=== PATIENT | female | born 1960 | race African-American/Black ===

== ENCOUNTER 2019-10-19 13:54 | Inpatient (IN) | payer OTHER ==
--- NOTE | 2019-10-19 14:38 | RAD ---
XR Chest 1 View Portable HISTORY: Abnormal labs COMPARISON: 03/14/2014 FINDINGS: The heart size is mildly enlarged. The aorta is tortuous. There is mild pulmonary vascular congestion. No lobar consolidation, pneumothoraces or large effusions are seen.
[2019-10-19 15:59] LABS: #Lymphocytes 0.5 thou/uL (1.20-3.40); #Monocytes 0.3 thou/uL (0.11-0.59); #Neutrophils 1.3 thou/uL (1.40-6.50); %Eosinophils 0.7 % (0.0-10.0); %Lymphocytes 23.4 % (21.0-51.0); %Monocytes 12.9 % (0.0-10.0); Hemoglobin 2.7 g/dL (12.0-16.0); Mean Corpuscular HGB CONC 29.1 g/dL (32.0-36.0); Mean Corpuscular Hemoglobin 21.4 pg (27.0-31.0); Mean Corpuscular Volume 73.6 fL (78.0-98.0); Mean Platelet Volume 12.8 fL (7.4-10.4); Platelet Count 24 thou/uL (130-400); RBC Distribution Width 21.9 % (11.5-14.5); Red Blood Cell (RBC) Count 1.24 mill/uL (4.20-5.40)
[2019-10-19 16:14] LABS: ALT (SGPT) 9 U/L (8-55); AST (SGOT) 17 U/L (5-34); Alkaline Phosphatase 71 U/L (40-110); Anion Gap 11 mmol/L (10-20); BUN (Urea Nitrogen) 4 mg/dL (9.8-20.1); Calc. Creatinine Clearance 0 mL/min (70-130); Calcium 7.9 mg/dL (7.8-10.44); Carbon Dioxide 23 mmol/L (22-29); Chloride 104 mmol/L (98-107); Estimated GFR-MDRD Greater than 90; Globulin 2.6 g/dL (2.4-3.5); Glucose 130 mg/dL (70-105); Protein, Total 5.6 g/dL (6.0-8.3); Sodium 135 mmol/L (136-145)
[2019-10-19 16:23] LABS: Potassium 2.9 mmol/L (3.5-5.1)
[2019-10-19 16:27] LABS: Anisocytosis MODERATE=16-30 cells (100X) (0-5/hpf); Elliptocytes SLIGHT = 2-5 cells (100X) (0-1/hpf); Hypochromia SLIGHT = 6-15 cells (100X) (0-5/hpf); MDiff Complete? YES; Microcytosis SLIGHT = 6-15 cells (100X) (0-5/hpf); Ovalocytes SLIGHT = 2-5 cells (100X) (0-1/hpf); Platelet Morphology Comment Appears Decreased; Poikilocytosis SLIGHT = 6-15 cells (100X) (0-5/hpf); Polychromasia SLIGHT = 2-3 cells (100X) (0-2/hpf); Reflex for Review?? YES; Schistocytes SLIGHT = 2-5 cells (100X) (0-1/hpf); Spherocytes SLIGHT = 1-5 cells (100X) (None Seen); Target Cells SLIGHT = 2-5 cells (100X) (0-1/hpf); Tear Drops SLIGHT = 2-5 cells (100X) (0-1/hpf)
[2019-10-19] MEDS ORDERED: Potassium Chloride 20 MEQ TAB ONE (16:49)
[2019-10-19 20:24] VITALS: BMI 25.6
[2019-10-19] MEDS ORDERED: Furosemide 20 MG/2 ML VIAL SLOW IVP SCH (21:00)
[2019-10-19] MEDS: Potassium Chloride 20 MEQ TAB PO SCH (21:43)
[2019-10-20] MEDS: Potassium Chloride 20 MEQ TAB PO SCH ×5 (00:26→20:03)
[2019-10-20 04:31] LABS: #Lymphocytes 0.7 thou/uL (1.20-3.40); #Monocytes 0.3 thou/uL (0.11-0.59); #Neutrophils 1.2 thou/uL (1.40-6.50); %Eosinophils 1.3 % (0.0-10.0); %Lymphocytes 30.5 % (21.0-51.0); %Monocytes 14.8 % (0.0-10.0); %Neutrophils 53.4 % (42.0-75.0); Hemoglobin 4.5 g/dL (12.0-16.0); Mean Corpuscular HGB CONC 30.2 g/dL (32.0-36.0); Mean Corpuscular Hemoglobin 23.5 pg (27.0-31.0); Mean Platelet Volume 13.3 fL (7.4-10.4); Platelet Count 28 thou/uL (130-400); RBC Distribution Width 20.5 % (11.5-14.5); Red Blood Cell (RBC) Count 1.93 mill/uL (4.20-5.40); White Blood Cell (WBC) Count 2.2 thou/uL (4.8-10.8)
[2019-10-20 04:54] LABS: Anion Gap 8 mmol/L (10-20); BUN (Urea Nitrogen) 4 mg/dL (9.8-20.1); Calc. Creatinine Clearance 104 mL/min (70-130); Carbon Dioxide 25 mmol/L (22-29); Chloride 108 mmol/L (98-107); Estimated GFR-MDRD Greater than 90; Glucose 104 mg/dL (70-105); Iron 94 ug/dL (50-170); Iron Binding Capacity, Total 343 mcg/dL (265-497); Potassium 3.3 mmol/L (3.5-5.1); Sodium 138 mmol/L (136-145)
[2019-10-20 05:28] LABS: Ferritin 3.57 ng/mL (10-291)
[2019-10-20] MEDS ORDERED: Acetaminophen 325 MG TAB PO PRN (08:03)
--- NOTE | 2019-10-20 08:28 | HP ---
CHIEF COMPLAINT: Low potassium and possible anemia. HISTORY OF PRESENT ILLNESS: Ms. Lu is a 58-year-old female with past medical history of hypertension, degenerative joint disease, was seen in my office a couple of days ago. The patient came with complaining of weakness and some shortness of breath and whole body aching. The patient was evaluated and found to have possible anemia. Labs were done in the office, which reveal severe hypokalemia with potassium of 2.7, so the patient was told to come to the hospital. The patient came today. The patient had lab work done again showed a potassium of 2.7, but also severe anemia with hemoglobin of 2.9. The patient was also initially hypotensive, so the patient received IV fluid bolus normal saline, then also received KCl 40 mEq and transfusion, and admitted for further evaluation and management. The patient was also found to have pancytopenia. She did not have any chest pain. No nausea or vomiting. No abdominal pain. No blood in stool. She does have shortness of breath on exertion at times. PAST MEDICAL HISTORY: 1. History of hypertension. 2. Degenerative joint disease. 3. History of alcoholic liver disease, possibly cirrhosis. 4. History of hydrothorax. 5. History of H pylori gastric ulcer in 2011. PAST SURGICAL HISTORY: Status post chest tube placement. and s/p EGD. CURRENT MEDICATIONS: The patient is on: 1. Lisinopril 20 mg daily. 2. Lasix 20 mg p.r.n. 3. Tylenol p.r.n. ALLERGIES: NKDA. FAMILY HISTORY: Nothing contributory. SOCIAL HISTORY: The patient lives with family. No history of smoking. Claims she is not drinking alcohol anymore. REVIEW OF SYSTEMS: CARDIOVASCULAR: No chest pain. No shortness of breath. RESPIRATORY: No fever or cough. GASTROINTESTINAL: Rectal exam deferred. Stool for occult blood done in the revealed it was negative. NEUROLOGICAL: No focal deficit. EXTREMITIES: 1+ pitting edema. PHYSICAL EXAMINATION: GENERAL: The patient is alert, awake, oriented x3. VITAL SIGNS: Temperature 98, pulse 80, respiratory rate 20, blood pressure 100/ 60. HEENT: Head is normocephalic, atraumatic. Pupils are equal and reactive. Nasopharynx is pale. NECK: Supple. No JVD. LUNGS: Bilateral air entry present. No rales, no rhonchi. HEART: S1 and S2, regular. No murmur. ABDOMEN: Soft. No distention. No tenderness. No organomegaly. Bowel sounds present. RECTAL: Deferred. CENTRAL NERVOUS SYSTEM: No focal deficits. LABORATORY DATA: CBC shows WBC 2, hemoglobin 2.7, RBC 1.24, hematocrit 9, platelets 24. Metabolic panel; sodium 135, potassium 2.9, chloride 104, CO2 of 23, urea nitrogen 4, creatinine 0.7, glucose 130. Chest x-ray negative. EKG shows normal sinus rhythm, no acute ST-T changes. ASSESSMENT: 1. Severe anemia, symptomatic. 2. Pancytopenia. 3. Severe hypokalemia. 4. Hypertension by history. 5. Degenerative joint disease. 6. History of H pylori gastric ulcer, treated. 7. History of cirrhosis of liver with ascites. 8. History of hydrothorax, treated. PLAN: 1. Vital sings q.4. 2. Activities as tolerated. 3. Allergies, NKDA. 4. Hep-Lock. 5. Transfuse 2 units of packed red blood cells. 6. Continue her home medications. 7. KCl replacement. 8. Ultrasound of the abdomen and pelvis. 9. Hematology consult. 10. GI consult. Job ID: [id number] MTDD
[2019-10-20] MEDS ORDERED: Furosemide 20 MG TAB PO SCH (09:00)
--- NOTE | 2019-10-20 09:14 | ULT ---
ABDOMINAL ULTRASOUND: HISTORY: Liver disease and anemia. FINDINGS: Real-time imaging of the upper abdomen was performed. In the expected location of the gallbladder is an area of echogenic shadowing. This is suspicious for a contracted gallbladder with gallstones in the absence of a cholecystectomy. The common duct is 3 mm. Liver parenchyma is heterogeneous. A 2. 9 cm septated cyst is seen. Liver contour shows slightly nodular contour suggesting cirrhotic change . The spleen measures 11.2 cm. Pancreas is largely obscured. Right and left kidneys are within nor mal limits of size and not obstructed. Abdominal aorta and IVC regions are obscured. Mild ascites was noted. IMPRESSION: 1. Lobulated liver contour suggesting cirrhotic change. 2. Probable contracted gallbladder with gallstones with echogenic shadow in the expected location of the gallbladder. In the absence of cholecystectomy, this would be compatible with a contracted gall bladder with stones. The common duct is 3 mm. 3. Mild ascites. POS: TPC
--- NOTE | 2019-10-20 10:53 | CON ---
DATE OF CONSULTATION: SUBJECTIVE: Isis Morris is a 59-year-old female, 5 feet 7 inches, 163 pounds, who is in the MICU, the reason for consult. In fact, she is unclear why she has been in the hospital, but apparently, she was sent to the ER by a primary care physician for what appears to be abnormal blood work. She now had a chest x-ray taken, which was unremarkable. Lab work shows severe pancytopenia. She says she does not drink, does not smoke. On further questioning, she says she smokes 4 cigarettes a day. Denies any drug abuse. HOME MEDICATION: Apparently includes; 1. Lasix 20. 2. Lisinopril 20. 3. Amlodipine 5. PREVIOUS SURGERIES: Otherwise included, none. But it appears she might have an endoscopy done several years ago. At that time , there was some history of alcohol abuse in the chart, from what I am told she had hematemesis. Once again, she denies any alcohol abuse at this stage. ALLERGIES: NONE. REVIEW OF SYSTEMS: Otherwise, difficult to obtain, but unremarkable. PHYSICAL EXAMINATION: VITAL SIGNS: Temperature is 97, sats are 100% on room air, blood pressure 110/ 60, resp 16/min. CHEST: No wheezing or crackles. CARDIAC: Normal S1, S2. No gallops. ABDOMEN: No masses. LABORATORY DATA: White count is only 2000, H and H 2 and 9, platelet count is 24,000. Potassium was 2.9. Liver function is normal. Bilirubin is normal. Albumin is 2.6. Total protein is 5.6. IMPRESSION: 1. Pancytopenia, etiology unclear. 2. History of hypertension. 3. cirrhosis ?? normal LFT PLAN: Hematology consult ordered. GI consult ordered. Pulmonary Critical Care will follow while in the ICU. If blood pressure remains low, I would hold all blood pressure medication at this stage. Consultation note, 70 minutes, 50% direct patient care. Job ID: [id number] MTDD
[2019-10-20] MEDS: Iron Sucrose Complex 200 MG in Sodium Chloride 0.9% 250 ML 250 ML IVPB SCH (12:11)
[2019-10-20] MEDS ORDERED: Guaifenesin DM 100-10/5 ML UDCUP PO PRN (12:57)
[2019-10-20] MEDS: Amlodipine 5 MG TAB PO SCH (16:22)
[2019-10-20] MEDS: Lisinopril 20 MG TAB PO SCH (16:22)
[2019-10-20 16:25] LABS: Hemoglobin 7.8 g/dL (12.0-16.0); Mean Corpuscular HGB CONC 32.2 g/dL (32.0-36.0); Mean Corpuscular Hemoglobin 25.7 pg (27.0-31.0); Mean Corpuscular Volume 79.8 fL (78.0-98.0); Mean Platelet Volume 13.9 fL (7.4-10.4); Platelet Count 37 thou/uL (130-400); RBC Distribution Width 19.1 % (11.5-14.5); Red Blood Cell (RBC) Count 3.02 mill/uL (4.20-5.40); White Blood Cell (WBC) Count 3.6 thou/uL (4.8-10.8)
[2019-10-20 16:35] LABS: INR-International Normal Ratio 1.5; Prothrombin Time 17.7 SEC (12.0-14.7)
[2019-10-20 16:36] LABS: PTT 45.4 SEC (22.9-36.1)
--- NOTE | 2019-10-20 18:39 | CON ---
DATE OF CONSULTATION: 10/20/2019 REQUESTING PHYSICIAN: Dr. Paulino. REASON FOR CONSULTATION: Severe iron deficiency anemia. HISTORY OF PRESENT ILLNESS: Isis Lu is a 59-year-old woman, previously seen by my GI colleague, Dr. Amado Snow. She has a history of H pylori, treated in 2011 and recurrent gastric ulcer in 2011 and then seen again in 2013. Her last EGD in 2013 demonstrated an antral ulceration, which Dr. Snow cauterized. She did not have any esophageal varices at that time. She also has a remote history of alcoholic liver disease actually with ascites and right-sided hydrothorax, but this was several years ago and has not recurred at all. She has stopped drinking all alcohol for at least the past 6 years. She has no other liver decompensation that she knows of. For about the past 2 months, the patient noticed that she has been having progressive weakness, shortness of breath, and full body aches, inability to get around due to the fatigue. She was seen by Dr. Paulino and laboratory studies demonstrated severe anemia. She was admitted to the hospital for further treatment and evaluation. Admission hemoglobin was 2.7 with MCV 73.6. After 4 units of RBC transfusion, hemoglobin is up to 7.8, but she is pancytopenic with platelets of 24 on presentation, up to 37 today. INR is 1.5. She is currently feeling a little better, but still quite weak. Interestingly, she denies any overt bleeding from anywhere. There is no nose bleed. She has no vaginal bleeding. She is postmenopausal. There is no gross hematuria. She denies any melena or hematochezia. She says her bowel movements are normal and regular and brown in color. She had a normal-appearing bowel movement today. She denies any abdominal pain, nausea, vomiting, or weight loss. She was evaluated by Hematology today and bone marrow biopsy is tentatively planned for next week. Flow cytometry is pending. Further labs did demonstrate severe iron deficiency with ferritin 3.57. She is receiving iron infusion at this time as well. REVIEW OF SYSTEMS: Full review of systems including constitutional, head, eyes, ears, nose, throat, GI, , cardiovascular, respiratory, musculoskeletal, neurologic systems is negative except as noted in the HPI. PAST MEDICAL HISTORY: 1. H pylori, treated in 2011. Gastric ulcer in 2011 and 2013. Alcoholic liver disease, stopped drinking 6 years ago. 2. Ascites, remote past. 3. Hypertension. 4. Degenerative joint disease. ALLERGIES: NO KNOWN DRUG ALLERGIES. OUTPATIENT MEDICATIONS: 1. Lisinopril. 2. Lasix. 3. Tylenol p.r.n. FAMILY HISTORY: Noncontributory. SOCIAL HISTORY: The patient smokes about 4 cigarettes per day. She stopped alcohol abuse about 6 years ago. PHYSICAL EXAMINATION: VITAL SIGNS: Temperature 98.3, blood pressure 121/58, pulse 90, 100% oxygen saturation on room air. GENERAL: A 59-year-old woman, lying in bed comfortably, feeling tired, but awake, in no acute distress. SKIN: She is pale. No jaundice. No rashes were palpable. EYES: No scleral icterus. Extraocular movements intact. ENT: Mucous membranes moist. No oral lesions. LYMPH: No submandibular or supraclavicular lymphadenopathy. THYROID: Nontender to palpation. HEART: Regular rate and rhythm. LUNGS: Clear to auscultation bilaterally. ABDOMEN: Soft, nontender to palpation throughout. EXTREMITIES: No peripheral edema. VESSELS: Radial pulses 2+ bilaterally. NEUROLOGICAL: Cranial nerves 2 through 12 intact bilaterally. No focal deficits. LABORATORY STUDIES: Initial hemoglobin 2.7, now up to 7.8 after 4 units RBC transfusion. MCV was 73.6, WBC is 3.6, platelets 37. Sodium 138, potassium 3.3, BUN 4, creatinine 0.68. LFTs all normal with total bilirubin 1.0, alkaline phosphatase 71, AST 17, ALT 9. Ferritin is 3.57, albumin 3.0, iron 94, TIBC 343, folic acid normal at 8.2, vitamin B12 normal at 1308. Troponin negative. FOBT is negative. Flow cytometry is pending. IMAGING STUDIES: Chest x-ray shows cardiomegaly and mild pulmonary vascular congestion. Abdominal ultrasound shows cirrhotic liver configuration. No evidence of any liver mass. Contracted gallbladder with gallstones, normal common bile duct 3 mm and mild ascites. Spleen measures 11 cm. ASSESSMENT AND PLAN: 1. Severe symptomatic iron deficiency anemia. 2. Pancytopenia. 3. Cirrhosis, previously characterized as due to prior alcohol abuse. The patient's presentation is consistent with severe symptomatic but chronic iron deficiency anemia. There is no evidence of any active or brisk gastrointestinal bleeding. Certainly, this would not be consistent with a variceal bleed. We discussed multiple possibilities for chronic iron deficiency, but occult GI bleeding lesion would certainly leave the differential. She has a known history of peptic ulcer disease, so this is possible. Consider also the possibility of chronic gastritis or gastric antral vascular ectasia, colon polyp, AVMs, malignancy. EGD and colonoscopy are certainly warranted for further investigation. This is complicated by the degree of her thrombocytopenia. I would advise trending the CBC tomorrow, hopefully the platelet count will improve with the iron infusion. Once the platelets are up to an acceptable level, we can consider bowel preparation for EGD and colonoscopy. If needed, we could consider platelet transfusion the morning of the procedure. For now, we will just have the patient on a clear liquid diet tomorrow and reassess. Thank you for the consultation. Please call anytime with questions or concerns. Job ID: [id number]
--- NOTE | 2019-10-20 20:53 | CON ---
DATE OF CONSULTATION: REASON FOR CONSULTATION: Pancytopenia. HISTORY OF PRESENT ILLNESS: Ms. Lu is a pleasant -[id number] female, who saw her primary care physician for 2-month history of fatigue, shortness of breath and lower extremity swelling. Routine lab showed a hemoglobin of 2.9. She was referred to the emergency room for further evaluation and treatment. In the emergency room, she was hypotensive and received a liter of IV saline. Her potassium was low and she was repleted. She was eventually admitted for pancytopenia. The patient states she has been short of breath for over 2 months. She admits to dizziness, but denies chest pain. She denies any hematuria, hemoptysis, melena or hematochezia. She does have a history of cirrhosis and upper GI bleed 5 years ago. She has been transfused 4 units of packed RBCs. Her hemoglobin improved to 4.5 after 2 units. Iron studies revealed severe iron deficiency and she is currently receiving a dose of IV iron. The patient is alert and oriented and answers questions appropriately. PAST MEDICAL HISTORY: 1. Hypertension. 2. Degenerative joint disease. 3. Alcoholic liver disease. 4. Hydrothorax. 5. H pylori. PAST SURGICAL HISTORY: Endoscopy, chest tube placement. ALLERGIES: NO KNOWN DRUG ALLERGIES. HOME MEDICATIONS: 1. Tylenol. 2. Norvasc. 3. Lasix. 4. Lisinopril. FAMILY HISTORY: Denies any history of cancer or blood disorder. SOCIAL HISTORY: Single. Lives with her brother. Has 2 grown children. Prior history of alcohol use. Occasional tobacco use. REVIEW OF SYSTEMS: A 10-point review of systems is negative except for noted in HPI. PHYSICAL EXAMINATION: VITAL SIGNS: Temperature is 97.9, pulse is 90, respiratory rate 21, blood pressure is 121/58. GENERAL: This is a well-developed, well-nourished female, in no acute distress. HEENT: Normocephalic, atraumatic. Pupils are equal and reactive to light. NECK: Supple. CV: Regular rate and rhythm. LUNGS: Clear. ABDOMEN: Distended, nontender. There is no hepatomegaly palpable. EXTREMITIES: No clubbing, or cyanosis. SKIN: No rash. HEMATOLOGICAL: There is no petechiae or purpura. NEUROLOGICAL: Nonfocal. PSYCHIATRIC: She is alert and oriented and appropriate. PERTINENT LABS AND X-RAYS: Current WBCs are 2.2, hemoglobin 4.5, hematocrit 15.1, platelet count is 28,000. She has 53% neutrophils, 30% lymphocytes. Peripheral smear shows all decreased lines, no abnormal cells. PT is 15.5, INR is 1.2, PTT is 31.2. Sodium is 138, potassium 3.3, chloride 108, CO2 is 25, BUN is 4, creatinine 0.68, calcium 8.0, bilirubin is 1.0. AST 17, ALT is 9, alkaline phosphatase is 71. Iron is 94, TIBC is 343, ferritin is 3.57. Serum total protein is 5.6, albumin 3.0, and globulin 2.6. Troponin was negative. B12 was 1308 and folic acid was 8.2. She had an abdominal ultrasound, which showed a lobulated liver suggesting cirrhosis. She had mild ascites. Spleen was 11.2 cm. ASSESSMENT: 1. Pancytopenia with severe anemia. 2. History of alcoholic liver disease with normal INR and LFTs. DISCUSSION: The patient has received 4 units of packed RBCs total. We will recheck a hemogram now and transfuse to get her blood count up above 7. I have sent flow cytometry on her peripheral blood. She will also need a bone marrow biopsy, which will be scheduled for Wednesday. She has no evidence of bleeding, so I would not transfuse any platelets at this time, but continue to check a CBC daily. GI has been consulted for their assistance. The patient will remain in the IM until her hemoglobin has stabilized. Thank you for the consult. We will follow her hospital course closely. Job ID: [id number]
[2019-10-20] MEDS ORDERED: FLU VACC QS2019-20(6MOS UP)/PF 60 MCG/0.5 ML SYRINGE IM ONE (21:00)
[2019-10-21 04:10] LABS: ALT (SGPT) 12 U/L (8-55); AST (SGOT) 24 U/L (5-34); Albumin 3.1 g/dL (3.5-5.0); Alkaline Phosphatase 76 U/L (40-110); Anion Gap 11 mmol/L (10-20); BUN (Urea Nitrogen) Less than 4 mg/dL (9.8-20.1); Bilirubin, Total 2.8 mg/dL (0.2-1.2); Calc. Creatinine Clearance 103 mL/min (70-130); Calcium 8.3 mg/dL (7.8-10.44); Carbon Dioxide 21 mmol/L (22-29); Chloride 110 mmol/L (98-107); Estimated GFR-MDRD Greater than 90; Globulin 2.7 g/dL (2.4-3.5); Glucose 109 mg/dL (70-105); Potassium 4.1 mmol/L (3.5-5.1); Protein, Total 5.8 g/dL (6.0-8.3); Sodium 138 mmol/L (136-145)
[2019-10-21 04:13] LABS: Band 6 % (5-11); Elliptocytes SLIGHT = 2-5 cells (100X) (0-1/hpf); Eosinophils 2 % (0-10); Lymphocytes 17 % (21-51); MDiff Complete? YES; Mean Corpuscular Hemoglobin 25.7 pg (27.0-31.0); Mean Corpuscular Volume 80.3 fL (78.0-98.0); Monocytes 17 % (0-10); Neutrophil 57 % (42-75); Platelet Count 40 thou/uL (130-400); Platelet Morphology Comment Appears Decreased; RBC Distribution Width 19.4 % (11.5-14.5); Red Blood Cell (RBC) Count 2.74 mill/uL (4.20-5.40); Vacuoles SLIGHT; White Blood Cell (WBC) Count 4.5 thou/uL (4.8-10.8)
[2019-10-21] MEDS: Amlodipine 5 MG TAB PO SCH (08:06)
[2019-10-21] MEDS: Lisinopril 20 MG TAB PO SCH (08:07)
[2019-10-21] MEDS ORDERED: GoLYTELY 4,000 ml Bottle PO SCH ×2 (10:45→20:00)
--- NOTE | 2019-10-21 11:15 | PRG ---
DATE OF SERVICE: 10/21/2019 SUBJECTIVE: Ms. Lu is feeling okay. Still quite fatigued. No overt bleeding from anywhere. Tolerating her clear liquid diet. OBJECTIVE: VITAL SIGNS: Temperature 98, pulse 93, blood pressure 117/60, 99% oxygen saturation on room air. GENERAL: No acute distress. HEART: Regular rate and rhythm. LUNGS: Clear to auscultation bilaterally. ABDOMEN: Bowel sounds present. Soft and nontender to palpation throughout. EXTREMITIES: No peripheral edema. LABORATORY STUDIES: Hemoglobin is 7.0, this is after 4 units RBC transfusion over the past 2 days, WBC 4.5, platelets 40, INR 1.5. Sodium 138, potassium 4.1, BUN less than 4, creatinine 0.69, total bilirubin 2.8, alkaline phosphatase 76, AST 24, ALT 12, albumin 3.1. ASSESSMENT AND PLAN: 1. Severe symptomatic iron deficiency anemia. 2. Pancytopenia. 3. Cirrhosis, otherwise stable through the years. We will plan for diagnostic EGD and colonoscopy tomorrow after bowel preparation this evening. Depending on her platelet count tomorrow morning, may need to transfuse a unit of platelets just prior to the procedure. The patient desires to proceed. Job ID: [id number]
[2019-10-21] MEDS: Iron Sucrose Complex 200 MG in Sodium Chloride 0.9% 250 ML 250 ML IVPB SCH (12:56)
[2019-10-22] MEDS: Amlodipine 5 MG TAB PO SCH (08:39)
[2019-10-22] MEDS: Lisinopril 20 MG TAB PO SCH (08:39)
[2019-10-22] MEDS ORDERED: PROPOFOL 200 MG/20 ML VIAL ONE (10:40)
[2019-10-22] MEDS ORDERED: Lidocaine 1% PF 5 ML VIAL ONE (10:40)
--- NOTE | 2019-10-22 11:18 | PRG ---
DATE OF SERVICE: 10/22/2019 SUBJECTIVE: This morning, she denies any pain or difficulty breathing. OBJECTIVE: VITAL SIGNS: Saturations are 100% on room air, temperature 99, blood pressure 118/66, pulse 102. She is being transfused. H and H are 7 and 22. Platelet count is 40. CHEST: No wheezing. No crackles. CARDIAC: Normal S1 and S2. No gallops. ABDOMEN: No masses. ASSESSMENT AND PLAN: Pancytopenia, etiology unclear; history of cirrhosis presumably. Bone marrow is being scheduled for the next day. Primary/Critical Care will follow while in the MICU. Job ID: [id number]
--- NOTE | 2019-10-22 15:41 | OP ---
DATE OF PROCEDURE: 10/22/2019 ELECTRICAL SYSTEMS DESIGNER SURGEON: None. PROCEDURES: 1. Esophagogastroduodenoscopy, diagnostic. 2. Colonoscopy, diagnostic. INDICATIONS: Severe iron deficiency anemia, in the context of pancytopenia, with prior history of cirrhosis, which has otherwise been well compensated. MEDICATIONS: See Anesthesia record. FINDINGS: After discussion of the risks, benefits, and alternatives of the procedure, informed consent was obtained and witnessed. Pre-endoscopic cardiopulmonary examination was satisfactory. Time-out was performed before sedation was achieved. Sedation was achieved with Anesthesia assistance in the endoscopy unit. A Pentax adult upper endoscope was placed into the oropharynx and passed through the cricopharyngeus under direct visualization. The esophageal mucosa appeared normal throughout with a normal-appearing Z-line. There were no esophageal varices. The endoscope was advanced into the stomach. Forward and retroflexed views of the entire gastric mucosa were obtained. There were no gastric varices noted. There was no evidence of any old blood or active bleeding. The gastric mucosa appears normal. The endoscope was advanced through the pylorus and into the first and second portions of the duodenum. In the duodenal bulb, there were multiple shallow erosions with some mild heme staining, but no significant bleeding. This area is friable. No large ulcerations noted. There appears to be some possible flattening of the villi in the second portion of the duodenum. I did not obtain biopsies on this examination, due to the patient's thrombocytopenia and risk of bleeding complication. The upper endoscope was completely withdrawn and the patient was repositioned. Digital rectal exam was performed, which was unremarkable. A Pentax adult colonoscope was inserted into the anus and passed forward to the cecum in the usual fashion. The cecal base was identified by the appendiceal orifice as well as the ileocecal valve. The terminal ileum was not intubated. The colonoscope was slowly withdrawn in a gradual and circumferential manner with careful examination of the entire colonic mucosa. The quality of the prep was good. The colonic mucosa appeared normal throughout. There were no polyps, no mass or lesions. No evidence of old blood or active bleeding or any bleeding lesions. Retroflexion in the rectum demonstrated internal hemorrhoids. The colonoscope was completely withdrawn and the patient allowed to recover. The patient tolerated the procedure well. There were no immediate postprocedure complications. IMPRESSION: 1. Erosive duodenitis without active hemorrhage. No biopsies obtained on this examination due to the patient's thrombocytopenia. 2. Otherwise, normal esophagogastroduodenoscopy. 3. Internal hemorrhoids. 4. Otherwise, normal colonoscopy to the cecum. RECOMMENDATIONS: 1. Daily PPI. 2. Check H. pylori serology and treat if positive. 3. We will also obtain celiac serologies. 4. Bone marrow biopsy is planned for tomorrow. 5. Advance diet. Job ID: [id number]
[2019-10-23] MEDS ORDERED: Midazolam HCl 2 mg/2 ml Vial ONE (08:07)
[2019-10-23] MEDS ORDERED: Fentanyl 100 MCG/2 ML VIAL ONE (08:07)
[2019-10-23] MEDS ORDERED: Sodium Bicarbonate 2.5 MEQ/5 ML VIAL ONE (08:07)
--- NOTE | 2019-10-23 08:30 | PRG ---
DATE OF SERVICE: 10/21/2019 SUBJECTIVE: She appears to be more stable this morning. OBJECTIVE: VITAL SIGNS: Saturations are 100% on room air, temperature 98, blood pressure 115/50, pulse 80, respiratory rate 18. LUNGS: No shortness of breath, coughing, or wheezing. CHEST: No crackles, rubs, or wheezing. CARDIAC: Normal S1, S2. No gallop. ABDOMEN: No masses. LABORATORY DATA: Her PT was normal. INR is normal. White count 4000, H and H 7 and 22, platelet count is still low at 40,000. ASSESSMENT AND PLAN: Pancytopenia, etiology unclear. History of presumed cirrhosis by ultrasound, though she says she denies any drinking at this time. A bone marrow biopsy is scheduled for Wednesday. Otherwise, continue supportive care. She can probably be transferred out of the MICU. Job ID: [id number]
[2019-10-23] MEDS: Lisinopril 20 MG TAB PO SCH (09:25)
[2019-10-23] MEDS: Amlodipine 5 MG TAB PO SCH (09:26)
--- NOTE | 2019-10-23 09:36 | CT ---
CT-guided bone marrow aspiration and biopsy HISTORY: Pancytopenia. FINDINGS: After explaining the procedure and answering all questions, limited CT imaging of the pelvi s was performed with patient prone. Sterile technique, buffered local anesthesia, CT guidance, and a left posterior approach were used to carefully advance an 11-gauge bone biopsy needle into the post erior aspect of the left iliac bone. Position was confirmed with CT. Blood aspirate was obtained. Core bone marrow specimen was also obtained and submitted to pathology for processing. Needle was removed. No evidence of complication. Patient tolerated the procedure well and was returne d in unchanged condition. IMPRESSION: Technically successful CT-guided bone marrow biopsy. Pathology is pending.
--- NOTE | 2019-10-23 09:38 | PRG ---
DATE OF SERVICE: 10/23/2019 SUBJECTIVE: Isis Lu is status post bone marrow biopsy. OBJECTIVE: VITAL SIGNS: Temperature 99, blood pressure 144/65, pulse 100, respiratory rate 18. GENERAL: No shortness of breath. No discomfort. CHEST: Decreased breath sounds. No wheezing. CARDIAC: Normal S1, S2. No gallops. ABDOMEN: No masses. ASSESSMENT AND PLAN: 1. Pancytopenia, etiology unclear. 2. History of cirrhosis. 3. Status post endoscopy. Pulmonary jara, nothing additional to offer. Await results from the bone marrow biopsy. She can transfer out of the MICU. Job ID: [id number]
[2019-10-23] MEDS ORDERED: Acetaminophen 500 MG TAB PO PRN (13:36)
[2019-10-23] MEDS ORDERED: Sodium Chloride 0.9% 1,000 ML IV SCH (13:45)
--- NOTE | 2019-10-23 15:15 | PRG ---
DATE OF SERVICE: 10/23/2019 SUBJECTIVE: Ms. Lu is without pain. She has had no bleeding. She is eating a little bit, does not have much of an appetite. She did have bone marrow biopsy. OBJECTIVE: VITAL SIGNS: Temperature is 98.6, pulse 97 to 99, and blood pressure 110/53. ABDOMEN: Soft and nontender. LABORATORY DATA: White count 4.5, hemoglobin 7, and platelet count 40,000. Bone marrow biopsy is pending. ASSESSMENT: Severe pancytopenia, notable iron-deficiency anemia with a ferritin of 3.5 on admission. Esophagogastroduodenoscopy and colonoscopy were nondiagnostic except for mild erosive duodenitis without active bleeding. RECOMMENDATIONS: 1. Await celiac biopsies and gastric biopsies for H pylori. 2. Continue PPI therapy. 3. Await bone marrow biopsy. We will follow along with you. Job ID: [id number]
[2019-10-24] MEDS: Amlodipine 5 MG TAB PO SCH (08:22)
[2019-10-24 08:23] VITALS: BP 116/64
[2019-10-24] MEDS: Lisinopril 20 MG TAB PO SCH (08:23)
[2019-10-24 13:33] LABS: #Eosinphils 0.1 thou/uL (0.0-0.7); #Lymphocytes 0.8 thou/uL (1.20-3.40); #Monocytes 0.8 thou/uL (0.11-0.59); #Neutrophils 4.4 thou/uL (1.40-6.50); %Basophils 0.1 % (0.0-1.0); %Eosinophils 1.2 % (0.0-10.0); %Lymphocytes 13.6 % (21.0-51.0); %Monocytes 12.5 % (0.0-10.0); %Neutrophils 72.6 % (42.0-75.0); Hemoglobin 7.5 g/dL (12.0-16.0); Mean Corpuscular HGB CONC 31.1 g/dL (32.0-36.0); Mean Corpuscular Hemoglobin 26.4 pg (27.0-31.0); Mean Corpuscular Volume 84.8 fL (78.0-98.0); Mean Platelet Volume 10.1 fL (7.4-10.4); Platelet Count 127 thou/uL (130-400); RBC Distribution Width 24.6 % (11.5-14.5); Red Blood Cell (RBC) Count 2.86 mill/uL (4.20-5.40); White Blood Cell (WBC) Count 6.1 thou/uL (4.8-10.8)
[2019-10-24 13:58] LABS: Anisocytosis MODERATE=16-30 cells (100X) (0-5/hpf); Hypochromia SLIGHT = 6-15 cells (100X) (0-5/hpf); MDiff Complete? YES; Ovalocytes SLIGHT = 2-5 cells (100X) (0-1/hpf); Platelet Morphology Comment Appears Decreased; Poikilocytosis SLIGHT = 6-15 cells (100X) (0-5/hpf); Polychromasia MODERATE = 3-4 cells (100X) (0-2/hpf); Spherocytes SLIGHT = 1-5 cells (100X) (None Seen); Tear Drops SLIGHT = 2-5 cells (100X) (0-1/hpf)
[2019-10-24 14:00] LABS: ALT (SGPT) 11 U/L (8-55); AST (SGOT) 30 U/L (5-34); Albumin 2.9 g/dL (3.5-5.0); Alkaline Phosphatase 83 U/L (40-110); Anion Gap 11 mmol/L (10-20); BUN (Urea Nitrogen) Less than 4 mg/dL (9.8-20.1); Calc. Creatinine Clearance 104 mL/min (70-130); Calcium 8.3 mg/dL (7.8-10.44); Carbon Dioxide 18 mmol/L (22-29); Chloride 108 mmol/L (98-107); Estimated GFR-MDRD Greater than 90; Globulin 2.8 g/dL (2.4-3.5); Glucose 128 mg/dL (70-105); Potassium 3.6 mmol/L (3.5-5.1); Protein, Total 5.7 g/dL (6.0-8.3); Sodium 133 mmol/L (136-145)
--- NOTE | 2019-10-24 14:16 | PDOC.MOPN ---
Interval History: No complaints, wants to go home. - Vital Signs Vital Signs: Vital Signs (12 hours) Temp Pulse BP Pulse Ox 10/24/19 11:09 98.1 F 10/24/19 08:23 116/64 10/24/19 08:22 103 H 116/64 10/24/19 08:00 100 10/24/19 07:12 99.8 F H 10/24/19 03:41 99.4 F Weight Weight 163 lb 7 oz Most Recent Monitor Data Heart Rate from ECG 97 NIBP 131/54 NIBP BP-Mean 79 Respiration from ECG 19 SpO2 98 - Physical Exam General: Alert, Oriented x3, No acute distress HEENT: Atraumatic, PERRLA, EOMI, Mucous membr. moist/pink Lungs: Clear to auscultation, Normal air movement Cardiovascular: Regular rate, Normal S1, Normal S2, No murmurs, Gallops, Rubs Abdomen: Normal bowel sounds, Soft, No tenderness, No hepatospenomegaly, No masses Extremities: No clubbing, No cyanosis, No edema, Normal pulses, No tenderness/ swelling Skin: No rashes, No breakdown, No significant lesion Neurological: Normal gait, Normal speech, Strength at 5/5 X4 ext, Normal tone, Sensation intact, Cranial nerves 3-12 NL, Reflexes 2+ Psych/Mental Status: Mental status NL, Mood NL - Labs Result Diagrams: 10/24/19 13:24 10/24/19 13:24 Lab results: Laboratory Results - last 24 hr 10/24/19 13:24: WBC 6.1, RBC 2.86 L, Hgb 7.5 L, Hct 24.3 L, MCV 84.8, MCH 26.4 L , MCHC 31.1 L, RDW 24.6 H, Plt Count 127 L, MPV 10.1, Neutrophils % 72.6, Neutrophils % (Manual) Not Reportable, Lymphocytes % 13.6 L, Monocytes % 12.5 H , Eosinophils % 1.2, Basophils % 0.1, Neutrophils # 4.4, Lymphocytes # 0.8 L, Monocytes # 0.8 H, Eosinophils # 0.1, Basophils # 0.0, Hypochromia SLIGHT = 6- 15 cells, Plt Morphology Comment Appears Decreased L, Polychromasia MODERATE = 3 -4 cells H, Poikilocytosis SLIGHT = 6-15 cells, Anisocytosis MODERATE=16-30 cells H, Spherocytes SLIGHT = 1-5 cells, Tear Drop Cells SLIGHT = 2-5 cells, Ovalocytes SLIGHT = 2-5 cells 10/24/19 13:24: Sodium 133 L, Potassium 3.6, Chloride 108 H, Carbon Dioxide 18 L , Anion Gap 11, BUN Less than 4 L, Creatinine 0.68, Estimated GFR (MDRD) Greater than 90, Glucose 128 H, Calcium 8.3, Total Bilirubin 2.0 H, AST 30, ALT 11, Alkaline Phosphatase 83, Serum Total Protein 5.7 L, Albumin 2.9 L, Globulin 2.8, Albumin/Globulin Ratio 1.0 L Status: lab reviewed by me, discussed w/pathologist - Pathology Pathology: no leukemia, lymphoma, aplastic anemia, MF. No iron stores noted. Likely reactive from severe iron deficiency. A/P - Problem (1) Iron deficiency anemia Current Visit: Yes Code(s): D50.9 - IRON DEFICIENCY ANEMIA, UNSPECIFIED Status: Chronic (2) Pancytopenia Current Visit: Yes Code(s): D61.818 - OTHER PANCYTOPENIA Status: Acute - Plan Plan: Spoke with Dr. Hi, bone marrow negative Oral iron BID for at least 6 months No gi source for ANNE, likely nutritional Repeat CBC in 1 month
[2019-10-24 15:17] VITALS: TEMP 97.6
[2019-10-24] MEDS ORDERED: Ferrous Sulfate 325 MG TAB PO SCH (17:00)
--- NOTE | 2019-10-24 19:24 | PRG ---
DATE OF SERVICE: 10/24/2019 SUBJECTIVE: Ms. Lu is going home today. She has had no bleeding. Her bone marrow biopsy came back nondiagnostic. She had no overt signs of bleeding. OBJECTIVE: VITAL SIGNS: Temperature is 98 to 99, pulse 91, blood pressure 119/76. GENERAL: The patient is sitting up at side of the bed. She is getting ready to go home. LABORATORY DATA: Today white count 6.1, hemoglobin 10.5, platelet count 127,000. Sodium 133, potassium 3.6, BUN and creatinine of 4 and 0.6. Liver function tests normal except for bilirubin of 2, AST and ALT of 13 and 11. B12 normal. Folate normal. ASSESSMENT: 1. Pancytopenia, possibly related to severe iron deficiency anemia. 2. Iron deficiency anemia with normal esophagogastroduodenoscopy and colonoscopy. Serology for Helicobacter pylori and celiac are pending. RECOMMENDATIONS: Agree with iron supplementation. Plan PPI. She will follow up in office in a couple of weeks to recheck her blood work. If all evaluation is negative, consider capsule endoscopy with small bowel source of iron deficiency anemia. Stool occult bloods were negative on admission on 10/19. Job ID: [id number]
--- NOTE | 2019-10-25 12:36 | DIS ---
DATE OF ADMISSION: 10/19/2019 DATE OF DISCHARGE: 10/24/2019 ADMITTING DIAGNOSES: 1. Severe anemia, symptomatic with pancytopenia. 2. Severe hypokalemia. 3. Hypertension. 4. Degenerative joint disease. 5. History of H pylori gastric ulcer. DISCHARGE DIAGNOSES: 1. Severe iron deficiency anemia, symptomatic status post transfusion of iron infusions, etiology not clear. 2. Pancytopenia. 3. Hypokalemia, corrected. 4. Hypertension. 5. 6. Erosive duodenitis. BRIEF SUMMARY OF HOSPITAL COURSE: Ms. Lu is a 58-year-old -[place] female who was admitted because of severe anemia. The patient hypokalemia later she had iron infusion her potassium was low at 2.9 EGD and colonoscopy biopsy . The patient's GI was done showed a reactive lisinopril 40 mg 40 mg. The patient will follow up in 2 weeks. Job ID: [id number]
[2019-10-25 16:46] LABS: EliA Celiac New Method **** NEW METHOD ****; Gliadin IgA Ab, Deamidated 1.3 EliAU/mL (<7 Negative); Gliadin IgG Ab, Deamidated Less than 0.4 EliAU/mL (<7 Negative); t-Transglutaminase (tTG) IgA 0.8 EliAU/mL (<7 Negative); t-Transglutaminase (tTG) IgG Less than 0.6 EliAU/mL (<7 Negative)
[2019-10-26 18:09] LABS: H. pylori IgA ABS 20.4 units (0.0-8.9); H. pylori IgG ABS 1.52 (0.00-0.79); H. pylori IgM ABS Less than 9.0 units (0.0-8.9)
== END 2019-10-24 19:16 | disposition home or self-care (01) | DRG 810 ==
LOC: ERS 13:54 → IMCU/EMU 18:39
PROVIDERS: ADMIT Surgery; ATTEND Emergency Medicine
PROC: 30233N1 Transfusion of Nonautologous Red Blood Cells into Peripheral Vein, Percutaneous Approach (ICD-10-PCS; principal; 2019-10-19)
PROC: 0DJ08ZZ Inspection of Upper Intestinal Tract, Via Natural or Artificial Opening Endoscopic (ICD-10-PCS; 2019-10-22)
PROC: 0DJD8ZZ Inspection of Lower Intestinal Tract, Via Natural or Artificial Opening Endoscopic (ICD-10-PCS; 2019-10-22)
PROC: 07DR3ZX Extraction of Iliac Bone Marrow, Percutaneous Approach, Diagnostic (ICD-10-PCS; 2019-10-23)
DX: D61.818 Other pancytopenia (principal); D50.9 Iron deficiency anemia, unspecified; I10 Essential (primary) hypertension; M19.91 Primary osteoarthritis, unspecified site; Z79.899 Other long term (current) drug therapy; E87.6 Hypokalemia; F17.210 Nicotine dependence, cigarettes, uncomplicated; K70.30 Alcoholic cirrhosis of liver without ascites; F10.10 Alcohol abuse, uncomplicated; K29.80 Duodenitis without bleeding; K64.8 Other hemorrhoids
CPT/HCPCS: 20225; 36415; 36416; 36430; 71045; 77002; 80048; 80053; 82274; 82607; 82728; 82746; 83516; 83540; 83550; 84484; 85025; 85060; 85097; 85610; 85730; 86850; 86900; 86901; 88184; 88237; 88305; 88313; 93005; 93975; 96360; 96361; J1756; J1940; J2001; J2250; J2704; J3010; J7050; P9016; P9035

== ENCOUNTER 2020-11-15 12:55 | Outpatient (CLI) | payer OTHER ==
--- NOTE | 2020-11-15 14:12 | ULT ---
HEPATIC ULTRASOUND AND DOPPLER STUDY: 11/15/20 INDICATIONS: Cirrhosis. FINDINGS: Liver shows mildly coarse echo pattern without focal mass. Mild irregularity of the liver margin cons istent with history of cirrhosis. There is a right hepatic lobe cyst measuring 1.7 x 2.3 x 2.6 cm. The images of the gallbladder reveal numerous echogenic gallstones. Common duct is upper normal marcos ured at 5 mm. Spleen size is upper normal measured at 11 cm. Pancreas is mostly obscured. Hepatic Doppler studies with color Doppler and spectral analysis demonstrate normal blood flow in po rtal veins, hepatic veins, splenic veins and hepatic arteries. Technologist describes a negative Mayfield's sign. IMPRESSION: 1. Cholelithiasis. 2. Liver changes of cirrhosis with no evidence of mass. Small hepatic cyst identified. 3. Hepatic Doppler shows normal flow in the hepatic vessels. 4. Cholelithiasis. Common bile duct upper normal caliber. POS: AH
== END 2020-11-15 12:56 | disposition home or self-care (01) ==
LOC: BICULT 12:55
PROVIDERS: ATTEND Physician Assistant Medical
DX: K74.60 Unspecified cirrhosis of liver (principal); D50.9 Iron deficiency anemia, unspecified; K80.20 Calculus of gallbladder without cholecystitis without obstruction; K76.89 Other specified diseases of liver
CPT/HCPCS: 76705

== ENCOUNTER 2021-10-01 13:23 | Outpatient (CLI) | payer OTHER | END 2021-10-01 13:24 | disposition home or self-care (01) | LOC: BICULT 13:23 | PROVIDERS: ATTEND Physician Assistant Medical | DX: K74.60 Unspecified cirrhosis of liver (principal); R42 Dizziness and giddiness; K80.20 Calculus of gallbladder without cholecystitis without obstruction | CPT/HCPCS: 76705 ==

== ENCOUNTER 2022-05-24 16:39 | Inpatient (IN) | payer OTHER ==
[~2022-05-24 16:39] MED LIST: Iopamidol-370 76% 500 ML 1 ML ONE
[2022-05-24] MEDS ORDERED: Morphine 4 MG/ML VIAL ONE (17:09)
[2022-05-24] MEDS ORDERED: Ondansetron PF 4 MG/2 ML Vial ONE (17:09)
[2022-05-24 17:37] LABS: Hemoglobin 12.9 g/dL (12.0-16.0); Mean Corpuscular HGB CONC 32.8 g/dL (32.0-36.0); Mean Corpuscular Hemoglobin 36.7 pg (27.0-31.0); Mean Platelet Volume 7.9 fL (7.4-10.4); Platelet Count 243 thou/uL (130-400); RBC Distribution Width 13.1 % (11.5-14.5); Red Blood Cell (RBC) Count 3.52 mill/uL (4.20-5.40); White Blood Cell (WBC) Count 12.3 thou/uL (4.8-10.8)
[2022-05-24 17:40] LABS: ALT (SGPT) 16 U/L (8-55); AST (SGOT) 28 U/L (5-34); Albumin 3.5 g/dL (3.4-4.8); Alkaline Phosphatase 157 U/L (40-110); Anion Gap 24 mmol/L (10-20); BUN (Urea Nitrogen) 15 mg/dL (9.8-20.1); Bilirubin, Total 2.2 mg/dL (0.2-1.2); CK (CPK) 135 U/L (29-168); Calc. Creatinine Clearance 0 mL/min (70-130); Calcium 9.9 mg/dL (7.8-10.44); Carbon Dioxide 17 mmol/L (23-31); Chloride 102 mmol/L (98-107); Estimated GFR 69; Globulin 2.8 g/dL (2.4-3.5); Glucose 93 mg/dL (80-115); Lipase 20 U/L (8-78); Potassium 4.4 mmol/L (3.5-5.1); Protein, Total 6.3 g/dL (5.8-8.1); Sodium 139 mmol/L (136-145)
[2022-05-24 17:53] LABS: Lymphocytes 2 % (21-51); MDiff Complete? YES; Macrocytosis MODERATE=16-30 cells (100X) (0-5/hpf); Monocytes 11 % (0-10); Neutrophil 86 % (42-75); Platelet Morphology Comment Appears Adequate; Polychromasia SLIGHT = 2-3 cells (100X) (0-2/hpf)
[2022-05-24 19:35] LABS: Bilirubin Negative (Negative); Blood, Urine Negative (Negative); Clarity Clear (Clear); Glucose, Urine (Dipstick) Normal (Negative); Ketone, Urine 10 mg/dL (Negative); Leukocyte Negative Leu/uL (Negative); Nitrite Negative (Negative); Protein, Urine (Dipstick) 10 mg/dL (Neg-Trace); Specific Gravity, Urine 1.042 (1.002-1.036); Urobilinogen 6 mg/dL (Less than 2); pH, Urine 5.5 (5.0-9.0)
[2022-05-24] MEDS ORDERED: Cefepime 2 GM VIAL ONE (19:46)
[2022-05-24 20:14] LABS: Lactic Acid 3.1 mmol/L (0.5-2.2)
[2022-05-24] MEDS ORDERED: Vancomycin 1 GM/200 ML BAG ONE (20:37)
[2022-05-24] MEDS ORDERED: Ondansetron ODT 4 MG TAB PO PRN (21:19)
[2022-05-24] MEDS ORDERED: Acetaminophen 650 MG Suppository PR PRN (21:19)
[2022-05-24] MEDS ORDERED: Ondansetron PF 4 MG/2 ML Vial IVP PRN (21:19)
[2022-05-24] MEDS ORDERED: hydrALAZINE 20 MG/ML VIAL SLOW IVP PRN (21:36)
[2022-05-24] MEDS ORDERED: Piperacillin/Tazobactam 3.375 GM in Sodium Chloride 0.9% 100 ML IVPB SCH (21:45)
[2022-05-24] MEDS ORDERED: Pantoprazole 40 MG VIAL IVP SCH (22:00)
[2022-05-24 23:15] LABS: SARS-CoV-2 NAA Rapid Test Not Detected (NotDetected)
[2022-05-25 00:40] LABS: Lactic Acid 3.9 mmol/L (0.5-2.2)
[2022-05-25] MEDS: Sodium Chloride 0.9% 1,000 ML IV SCH ×2 (00:41→01:41)
[2022-05-25] MEDS: Acetaminophen 325 MG TAB PO PRN ×3 (00:41→21:49)
[2022-05-25] MEDS ORDERED: Piperacillin/Tazobactam 3.375 GM in Sodium Chloride 0.9% 100 ML IVPB SCH ×2 (01:00→04:00)
[2022-05-25 01:09] VITALS: BMI 24.3
[2022-05-25 05:04] LABS: Lactic Acid 2.3 mmol/L (0.5-2.2)
[2022-05-25 05:18] LABS: Anion Gap 18 mmol/L (10-20); Calc. Creatinine Clearance 91 mL/min (70-130); Calcium 8.9 mg/dL (7.8-10.44); Carbon Dioxide 15 mmol/L (23-31); Chloride 106 mmol/L (98-107); Estimated GFR 95; Glucose 81 mg/dL (80-115); Sodium 135 mmol/L (136-145)
[2022-05-25 05:32] LABS: BUN (Urea Nitrogen) 13 mg/dL (9.8-20.1)
[2022-05-25 05:52] LABS: Hemoglobin 11.7 g/dL (12.0-16.0); MDiff Complete? YES; Mean Corpuscular HGB CONC 31.7 g/dL (32.0-36.0); Mean Corpuscular Hemoglobin 35.9 pg (27.0-31.0); Mean Platelet Volume 8.1 fL (7.4-10.4); Platelet Count 189 thou/uL (130-400); RBC Distribution Width 13.2 % (11.5-14.5); Red Blood Cell (RBC) Count 3.25 mill/uL (4.20-5.40); White Blood Cell (WBC) Count 12.1 thou/uL (4.8-10.8)
[2022-05-25 05:53] LABS: Band 2 % (5-11); Lymphocytes 19 % (21-51); Monocytes 14 % (0-10); Neutrophil 65 % (42-75)
[2022-05-25] MEDS: Piperacillin/Tazobactam 3.375 GM in Sodium Chloride 0.9% 100 ML IVPB SCH ×3 (06:08→21:50)
[2022-05-25] MEDS: Enoxaparin Sodium 40 MG/0.4 ML SYRINGE SC SCH (08:20)
[2022-05-25] MEDS: Pantoprazole 40 MG VIAL IVP SCH (08:20)
[2022-05-25 11:44] LABS: Lactic Acid 2.7 mmol/L (0.5-2.2)
[2022-05-25] MEDS ORDERED: Magnevist 469MG/ML 20 ML VIAL ONE (11:47)
[2022-05-25] MEDS ORDERED: traMADol HCl 50 MG TAB PO PRN (14:23)
[2022-05-26] MEDS: Piperacillin/Tazobactam 3.375 GM in Sodium Chloride 0.9% 100 ML IVPB SCH ×3 (06:31→22:26)
[2022-05-26] MEDS: Acetaminophen 325 MG TAB PO PRN ×2 (06:32→13:31)
[2022-05-26] MEDS: Enoxaparin Sodium 40 MG/0.4 ML SYRINGE SC SCH (10:07)
[2022-05-26] MEDS: Pantoprazole 40 MG VIAL IVP SCH (11:03)
[2022-05-26] MEDS ORDERED: Lidocaine 1% PF 5 ML VIAL ONE (12:06)
[2022-05-26] MEDS ORDERED: PROPOFOL 200 MG/20 ML VIAL ONE (12:06)
[2022-05-26] MEDS ORDERED: Ondansetron HCl/PF 4 MG/2 ML Vial IVP PRN (12:23)
[2022-05-26] MEDS ORDERED: Promethazine HCl 25 MG/ML VIAL IVPB PRN (12:23)
[2022-05-26 16:58] LABS: INR-International Normal Ratio 1.2; Prothrombin Time 15.4 sec (12.0-14.7)
[2022-05-26 16:59] LABS: PTT 43.4 sec (22.9-36.1)
[2022-05-26] MEDS: HYDROcodone/Acetaminophen 7.5/325 mg Tablet PO PRN ×2 (19:09→22:52)
[2022-05-27] MEDS: HYDROcodone/Acetaminophen 7.5/325 mg Tablet PO PRN (04:04)
[2022-05-27] MEDS: Piperacillin/Tazobactam 3.375 GM in Sodium Chloride 0.9% 100 ML IVPB SCH ×3 (06:30→21:18)
[2022-05-27] MEDS: Enoxaparin Sodium 40 MG/0.4 ML SYRINGE SC SCH (09:20)
[2022-05-27] MEDS: Pantoprazole 40 MG VIAL IVP SCH (09:21)
[2022-05-27] MEDS: Acetaminophen 325 MG TAB PO PRN ×2 (12:14→21:17)
[2022-05-28] MEDS: Acetaminophen 325 MG TAB PO PRN ×2 (04:17→10:16)
[2022-05-28] MEDS: Piperacillin/Tazobactam 3.375 GM in Sodium Chloride 0.9% 100 ML IVPB SCH ×3 (04:29→21:07)
[2022-05-28] MEDS: Enoxaparin Sodium 40 MG/0.4 ML SYRINGE SC SCH (10:16)
[2022-05-28] MEDS: Pantoprazole 40 MG VIAL IVP SCH (10:17)
[2022-05-28] MEDS: Morphine 2 MG/ML VIAL SLOW IVP PRN (13:37)
[2022-05-28 15:42] LABS: RBC Count-Automated (BF) 454 /cu.mm; WBC/Nucleated-Auto (BF) 1480 /cu.mm
[2022-05-28 15:58] LABS: Body Fluid Source Ascites Body Fluid
[2022-05-28 15:59] LABS: BF Color Yellow; Clarity Hazy (Clear); Tube # EDTA
[2022-05-28 16:02] LABS: BF Segmented Neutrophils 47 %; Cell Count Non Hematic 31 %; Lymphocytes 20 %
[2022-05-29] MEDS: Acetaminophen 325 MG TAB PO PRN (01:04)
[2022-05-29] MEDS: Piperacillin/Tazobactam 3.375 GM in Sodium Chloride 0.9% 100 ML IVPB SCH ×3 (05:05→22:10)
[2022-05-29 05:42] LABS: ALT (SGPT) 14 U/L (8-55); AST (SGOT) 33 U/L (5-34); Albumin 2.6 g/dL (3.4-4.8); Alkaline Phosphatase 119 U/L (40-110); Anion Gap 16 mmol/L (10-20); BUN (Urea Nitrogen) 8 mg/dL (9.8-20.1); Bilirubin, Total 1.5 mg/dL (0.2-1.2); Calc. Creatinine Clearance 108 mL/min (70-130); Calcium 10.9 mg/dL (7.8-10.44); Carbon Dioxide 18 mmol/L (23-31); Chloride 104 mmol/L (98-107); Estimated GFR 102; Globulin 2.9 g/dL (2.4-3.5); Glucose 86 mg/dL (80-115); Lipase 14 U/L (8-78); Potassium 4.5 mmol/L (3.5-5.1); Protein, Total 5.5 g/dL (5.8-8.1); Sodium 133 mmol/L (136-145)
[2022-05-29 06:00] LABS: Lymphocytes 17 % (21-51); MDiff Complete? YES; Mean Corpuscular HGB CONC 31.9 g/dL (32.0-36.0); Mean Corpuscular Hemoglobin 36.6 pg (27.0-31.0); Mean Platelet Volume 8.2 fL (7.4-10.4); Monocytes 5 % (0-10); Neutrophil 78 % (42-75); Platelet Count 195 thou/uL (130-400); Platelet Morphology Comment Appears Adequate; RBC Distribution Width 14.5 % (11.5-14.5); RBC Morphology Normal; Red Blood Cell (RBC) Count 3.54 mill/uL (4.20-5.40); White Blood Cell (WBC) Count 16.9 thou/uL (4.8-10.8)
[2022-05-29] MEDS: Morphine 2 MG/ML VIAL SLOW IVP PRN ×2 (09:33→20:56)
[2022-05-29] MEDS: Pantoprazole 40 MG VIAL IVP SCH (09:46)
[2022-05-29] MEDS: Enoxaparin Sodium 40 MG/0.4 ML SYRINGE SC SCH (09:47)
[2022-05-29] MEDS ORDERED: HYDROcodone/Acetaminophen 5/325 mg Tablet PO SCH (12:15)
[2022-05-30] MEDS: HYDROcodone/Acetaminophen 5/325 mg Tablet PO PRN ×2 (00:07→04:14)
[2022-05-30] MEDS: Piperacillin/Tazobactam 3.375 GM in Sodium Chloride 0.9% 100 ML IVPB SCH ×3 (05:42→21:05)
[2022-05-30] MEDS: HYDROcodone/Acetaminophen 7.5/325 mg Tablet PO PRN ×2 (09:22→13:26)
[2022-05-30] MEDS: Pantoprazole 40 MG VIAL IVP SCH (09:23)
[2022-05-30] MEDS: Enoxaparin Sodium 40 MG/0.4 ML SYRINGE SC SCH (09:23)
[2022-05-30] MEDS: Morphine 2 MG/ML VIAL SLOW IVP PRN ×2 (15:35→22:48)
[2022-05-30] MEDS ORDERED: Morphine 4 MG/ML VIAL SLOW IVP SCH (16:15)
[2022-05-31] MEDS ORDERED: HYDROcodone/Acetaminophen 5/325 mg Tablet PO SCH (01:05)
[2022-05-31 05:38] LABS: #Basophils 0.1 thou/uL (0.0-0.2); #Eosinphils 0.2 thou/uL (0.0-0.7); #Lymphocytes 0.8 thou/uL (1.20-3.40); #Monocytes 2.6 thou/uL (0.11-0.59); #Neutrophils 14.5 thou/uL (1.40-6.50); %Basophils 0.7 % (0.0-1.0); %Lymphocytes 4.6 % (21.0-51.0); %Monocytes 14.3 % (0.0-10.0); %Neutrophils 79.5 % (42.0-75.0); Hemoglobin 12.9 g/dL (12.0-16.0); Mean Corpuscular HGB CONC 31.2 g/dL (32.0-36.0); Mean Corpuscular Hemoglobin 36.1 pg (27.0-31.0); Mean Platelet Volume 7.6 fL (7.4-10.4); Platelet Count 165 thou/uL (130-400); RBC Distribution Width 14.5 % (11.5-14.5); Red Blood Cell (RBC) Count 3.58 mill/uL (4.20-5.40); White Blood Cell (WBC) Count 18.3 thou/uL (4.8-10.8)
[2022-05-31] MEDS: Piperacillin/Tazobactam 3.375 GM in Sodium Chloride 0.9% 100 ML IVPB SCH ×3 (05:59→21:18)
[2022-05-31 06:02] LABS: ALT (SGPT) 16 U/L (8-55); AST (SGOT) 35 U/L (5-34); Albumin 2.7 g/dL (3.4-4.8); Alkaline Phosphatase 129 U/L (40-110); Anion Gap 18 mmol/L (10-20); BUN (Urea Nitrogen) 11 mg/dL (9.8-20.1); Bilirubin, Total 1.6 mg/dL (0.2-1.2); Calc. Creatinine Clearance 103 mL/min (70-130); Carbon Dioxide 20 mmol/L (23-31); Chloride 104 mmol/L (98-107); Estimated GFR 100; Globulin 3.4 g/dL (2.4-3.5); Glucose 84 mg/dL (80-115); Potassium 4.1 mmol/L (3.5-5.1); Protein, Total 6.1 g/dL (5.8-8.1); Sodium 138 mmol/L (136-145)
[2022-05-31 06:09] LABS: Calcium 12.1 mg/dL (7.8-10.44)
[2022-05-31] MEDS: Morphine 2 MG/ML VIAL SLOW IVP PRN ×2 (07:51→16:07)
[2022-05-31] MEDS: Enoxaparin Sodium 40 MG/0.4 ML SYRINGE SC SCH (08:48)
[2022-05-31] MEDS: Pantoprazole 40 MG VIAL IVP SCH (08:48)
[2022-05-31] MEDS: HYDROcodone/Acetaminophen 10/325 mg Tablet PO PRN ×2 (10:21→18:05)
[2022-05-31] MEDS: Sodium Chloride 0.9% 1,000 ML IV SCH ×2 (13:46→19:16)
[2022-06-01] MEDS: HYDROcodone/Acetaminophen 10/325 mg Tablet PO PRN ×2 (00:11→06:04)
[2022-06-01] MEDS: Piperacillin/Tazobactam 3.375 GM in Sodium Chloride 0.9% 100 ML IVPB SCH ×3 (06:03→22:56)
[2022-06-01] MEDS: Sodium Chloride 0.9% 1,000 ML IV SCH ×3 (06:03→21:20)
[2022-06-01] MEDS: Enoxaparin Sodium 40 MG/0.4 ML SYRINGE SC SCH (09:43)
[2022-06-01] MEDS: Pantoprazole 40 MG VIAL IVP SCH (09:44)
[2022-06-01] MEDS ORDERED: traMADol HCl 50 MG TAB PO PRN ×2 (11:04)
[2022-06-01] MEDS ORDERED: HYDROcodone/Acetaminophen 10/325 mg Tablet PO PRN ×2 (11:05)
[2022-06-01] MEDS ORDERED: fentaNYL 50 mcg/hour Patch TD SCH (12:15)
[2022-06-01] MEDS: Fentanyl 100 MCG/2 ML VIAL SLOW IVP PRN (12:37)
[2022-06-01] MEDS ORDERED: Zoledronic Acid 4 MG in Sodium Chloride 0.9% 100 ML IVPB SCH (15:45)
[2022-06-01] MEDS ORDERED: Furosemide 40 MG/4 ML VIAL SLOW IVP SCH (16:45)
[2022-06-01 16:54] LABS: Anion Gap 18 mmol/L (10-20); BUN (Urea Nitrogen) 13 mg/dL (9.8-20.1); Calc. Creatinine Clearance 106 mL/min (70-130); Carbon Dioxide 20 mmol/L (23-31); Chloride 109 mmol/L (98-107); Estimated GFR 101; Glucose 87 mg/dL (80-115); Sodium 143 mmol/L (136-145)
[2022-06-01 17:01] LABS: Calcium 12.5 mg/dL (7.8-10.44)
[2022-06-01] MEDS ORDERED: Amlodipine 10 MG TAB PO SCH (19:15)
[2022-06-01] MEDS: Calcitonin,Synthetic 200 UNITS/ML MDV SC SCH (22:53)
[2022-06-02] MEDS: Labetalol HCl 100 MG/20 ML VIAL SLOW IVP PRN ×3 (00:22→15:31)
[2022-06-02] MEDS: Sodium Chloride 0.9% 1,000 ML IV SCH ×4 (00:48→21:30)
[2022-06-02] MEDS: Piperacillin/Tazobactam 3.375 GM in Sodium Chloride 0.9% 100 ML IVPB SCH ×3 (05:07→21:30)
[2022-06-02] MEDS: Fentanyl 100 MCG/2 ML VIAL SLOW IVP PRN ×3 (05:13→19:17)
[2022-06-02] MEDS: Furosemide 40 MG/4 ML VIAL SLOW IVP SCH ×2 (05:13→12:50)
[2022-06-02 05:38] LABS: Anion Gap 20 mmol/L (10-20); BUN (Urea Nitrogen) 12 mg/dL (9.8-20.1); Calc. Creatinine Clearance 98 mL/min (70-130); Carbon Dioxide 20 mmol/L (23-31); Chloride 111 mmol/L (98-107); Estimated GFR 99; Glucose 93 mg/dL (80-115); Potassium 4.8 mmol/L (3.5-5.1); Sodium 146 mmol/L (136-145)
[2022-06-02 05:45] LABS: Calcium 12.5 mg/dL (7.8-10.44)
[2022-06-02] MEDS: Morphine 2 MG/ML VIAL SLOW IVP PRN (08:12)
[2022-06-02] MEDS: Pantoprazole 40 MG VIAL IVP SCH (08:14)
[2022-06-02] MEDS: Enoxaparin Sodium 40 MG/0.4 ML SYRINGE SC SCH (08:15)
[2022-06-02] MEDS: Amlodipine 10 MG TAB PO SCH (09:10)
[2022-06-02] MEDS: Calcitonin,Synthetic 200 UNITS/ML MDV SC SCH ×2 (12:47→22:51)
[2022-06-03] MEDS: Morphine 2 MG/ML VIAL SLOW IVP PRN (00:09)
[2022-06-03] MEDS: Fentanyl 100 MCG/2 ML VIAL SLOW IVP PRN (02:03)
[2022-06-03] MEDS: Labetalol HCl 100 MG/20 ML VIAL SLOW IVP PRN (04:21)
[2022-06-03] MEDS: Sodium Chloride 0.9% 1,000 ML IV SCH ×3 (05:01→17:19)
[2022-06-03] MEDS: Piperacillin/Tazobactam 3.375 GM in Sodium Chloride 0.9% 100 ML IVPB SCH ×2 (06:30→16:44)
[2022-06-03] MEDS: Furosemide 40 MG/4 ML VIAL SLOW IVP SCH ×2 (07:37→16:01)
[2022-06-03 09:27] VITALS: BP 134/69; TEMP 99
[2022-06-03] MEDS: Amlodipine 10 MG TAB PO SCH (12:02)
[2022-06-03] MEDS: Calcitonin,Synthetic 200 UNITS/ML MDV SC SCH (12:11)
[2022-06-03] MEDS: Enoxaparin Sodium 40 MG/0.4 ML SYRINGE SC SCH (12:12)
[2022-06-03] MEDS: Pantoprazole 40 MG VIAL IVP SCH (12:12)
== END 2022-06-03 13:44 | disposition expired | DRG 375 ==
LOC: ERS 16:39 → MSONC 20:55
PROVIDERS: ADMIT Internal Medicine; ATTEND Internal Medicine
PROC: 0DJ08ZZ Inspection of Upper Intestinal Tract, Via Natural or Artificial Opening Endoscopic (ICD-10-PCS; principal; 2022-05-26)
PROC: 0W9G3ZZ Drainage of Peritoneal Cavity, Percutaneous Approach (ICD-10-PCS; 2022-05-28)
DX: C78.6 Secondary malignant neoplasm of retroperitoneum and peritoneum (principal); C23 Malignant neoplasm of gallbladder; C78.7 Secondary malignant neoplasm of liver and intrahepatic bile duct; R18.8 Other ascites; K76.6 Portal hypertension; E87.2 Acidosis; D61.818 Other pancytopenia; R64 Cachexia; Z66 Do not resuscitate; Z51.5 Encounter for palliative care; K74.60 Unspecified cirrhosis of liver; Z20.822 Contact with and (suspected) exposure to COVID-19; K72.90 Hepatic failure, unspecified without coma; I10 Essential (primary) hypertension; F17.210 Nicotine dependence, cigarettes, uncomplicated; K80.20 Calculus of gallbladder without cholecystitis without obstruction; K76.89 Other specified diseases of liver; R91.8 Other nonspecific abnormal finding of lung field; M19.90 Unspecified osteoarthritis, unspecified site; D72.829 Elevated white blood cell count, unspecified; D50.9 Iron deficiency anemia, unspecified; K59.00 Constipation, unspecified; E83.52 Hypercalcemia; Z79.899 Other long term (current) drug therapy; Z68.24 Body mass index [BMI] 24.0-24.9, adult
CPT/HCPCS: 36415; 36416; 49083; 71045; 74177; 74183; 76705; 80048; 80053; 81003; 82042; 82140; 82330; 82378; 82550; 83605; 83690; 83880; 84157; 84484; 85025; 85060; 85610; 85730; 87040; 87070; 87086; 87205; 88112; 88305; 88341; 88342; 89051; 93005; 96361; 96365; 96367; 96375; A9579; C9113; J0360; J0630; J0692; J1650; J1940; J2270; J2405; J2543; J2704; J3010; J3370; J3490; J7050; Q9967; U0002; U0003; U0005